=== PATIENT | female | born 1985 | race Caucasian/White ===

== ENCOUNTER 2016-09-30 15:27 | Emergency (ER) | payer BC ==
[2016-09-30 16:25] VITALS: O2SAT 100
[2016-09-30] MEDS ORDERED: Sodium Chloride 0.9% 1,000 ML IV STA (17:40)
--- NOTE | 2016-09-30 17:47 | ED PDOC ---
Syncope/Near Syncope/Dizziness Time Seen by Provider: 09/30/16 17:29 Chief Complaint (Nursing): Syncope Chief Complaint (Provider): fainted History Per: Patient, Family History/Exam Limitations: no limitations Onset/Duration Of Symptoms: Sudden Onset (at 1pm) Associated Symptoms Preceding Syncopal Episode: Lightheadedness Fall Associated With With Symptoms: Yes (hit head) Additional Complaint(s): Generalized weakness for 2 days Fever for 1 day, took one tablet of 325mg acetaminophen yesterday with no relief Associated body aches and shaking chills today. Decreased appetite. While in shower, syncopal episode. May have been out for "a couple minutes" but unwitnessed. No urinary incontinence. Denies cough, runny nose, sore throat, vomiting/diarrhea, rash, neck stiffness, photophobia, urinary symptoms. Recent trip to [place] 2 weeks ago. Reports using insect repellent and covering up to prevent insect bites. Denies any known insect bites. PMD Prompt MD Berrios Past Medical History Reviewed: Historical Data, Nursing Documentation, Vital Signs Vital Signs: Last Vital Signs Temp 102.3 F H 09/30/16 16:23 Pulse 115 H 09/30/16 16:23 Resp 16 09/30/16 16:23 BP 95/66 L 09/30/16 16:23 Pulse Ox 100 09/30/16 16:23 - Medical History PMH: No Chronic Diseases - Surgical History Surgical History: No Surg Hx - Family History Family History: States: No Known Family Hx - Social History Current smoker - smoking cessation education provided: No - Allergies Allergies/Adverse Reactions: Allergies Allergy/AdvReac Type Severity Reaction Status Date / Time No Known Allergies Allergy Verified 09/30/16 16:22 Review of Systems ROS Statement: Except As Marked, All Systems Reviewed And Found Negative Constitutional: Positive for: Fever, Chills, Weakness, Malaise. Negative for: Sweats ENT: Negative for: Nose Discharge, Nose Congestion, Throat Pain Cardiovascular: Positive for: Light Headedness. Negative for: Chest Pain Respiratory: Negative for: Cough, Sputum Gastrointestinal: Negative for: Vomiting, Abdominal Pain, Diarrhea Genitourinary Female: Negative for: Dysuria, Frequency, Vaginal Discharge, Vaginal Bleeding Musculoskeletal: Positive for: Neck Pain, Back Pain, Leg Pain, Other (diffuse myalgias and joint pains) Skin: Negative for: Rash, Lesions, Jaundice Neurological: Positive for: Headache. Negative for: Weakness, Numbness, Incoordination Physical Exam - Reviewed Nursing Documentation Reviewed: Yes Vital Signs Reviewed: Yes - Physical Exam Appears: Positive for: Non-toxic, In Acute Distress (fever shaking ) Head Exam: Positive for: ATRAUMATIC, NORMOCEPHALIC Skin: Positive for: Warm, Dry. Negative for: Rash Eye Exam: Positive for: EOMI, PERRL ENT: Positive for: Other (dry mucus membranes). Negative for: Pharyngeal Erythema, Tonsillar Exudate, Tonsillar Swelling Neck: Positive for: Painless ROM, Supple (NO meningismus) Cardiovascular/Chest: Positive for: Regular Rate, Rhythm, Chest Non Tender. Negative for: Murmur Respiratory: Positive for: Normal Breath Sounds. Negative for: Rales, Rhonchi, Wheezing, Respiratory Distress Gastrointestinal/Abdominal: Positive for: Soft. Negative for: Tenderness, Distended, Guarding Back: Positive for: Normal Inspection. Negative for: Vertebral Tenderness, Muscle Spasm Extremity: Positive for: Normal ROM. Negative for: Pedal Edema, Deformity Lymphatic: Negative for: Adenopathy Neurologic/Psych: Positive for: Alert. Negative for: Motor/Sensory Deficits - Laboratory Results Result Diagrams: 09/30/16 18:30 09/30/16 18:30 Interpretation Of Abn Labs: No emergently clinically significant lab abnormalities. - ECG ECG Rhythm: Positive for: Sinus Tachycardia O2 Sat by Pulse Oximetry: 100 Pulse Ox Interpretation: Normal - Progress Re-evaluation Time: 20:00 Condition: Re-examined, Improved (pt feels better s/p IVF, tylenol, toradol. Eager to go home.) Disposition - Clinical Impression Clinical Impression: Syncope, Fever, Myalgia Counseled Patient/Family Regarding: Studies Performed, Diagnosis, Need For Followup, Rx Given - Disposition Referrals: PROMPT MD [Provider Group] (FOLLOW UP TOMORROW WITH PROMPT MD FOR REEVALUATION) Disposition: Routine/Home Disposition Time: 20:00 Condition: IMPROVED Additional Instructions: DRINK PLENTY OF HYDRATING FLUIDS AND TRY TO STAY WELL NOURISHED TAKE FULL DOSE TYLENOL AND/OR MOTRIN FOR FEVER OR BODYACHES. Instructions: Viral Syndrome (ED), Syncope (ED)
[2016-09-30 18:20] LABS: RBC URINE 111 /hpf (0-3); URINE BACTERIA RARE (<OCC); URINE BILIRUBIN NEGATIVE (NEGATIVE); URINE BLOOD MODERATE (NEGATIVE); URINE COLOR YELLOW (YELLOW); URINE GLUCOSE (UA) NEG (Normal); URINE KETONE TRACE mg/dL (NEGATIVE); URINE LEUKOCYTE ESTERASE TRACE Leu/uL (Negative); URINE PROTEIN 30 mg/dL (NEGATIVE); URINE UROBILINOGEN 0.2-1.0 mg/dL (0.2-1.0); WBC URINE 3 /hpf (0-5)
[2016-09-30 18:56] LABS: BASO % 0.2 % (0.0-2.0); HEMATOCRIT 35.6 % (34.0-47.0); LYMPH # 0.9 K/uL (1.0-4.3); LYMPH % 10.4 % (20.0-40.0); MEAN CELL VOLUME 84.5 fl (81.0-99.0); MEAN CORPUSCULAR HEMOGLOBIN 27.5 pg (27.0-31.0); MEAN CORPUSCULAR HGB CONC 32.5 g/dL (33.0-37.0); MEAN PLATELET VOLUME 10.2 fl (7.2-11.7); MONO # 0.5 K/uL (0.0-0.8); MONO % 6.1 % (0.0-10.0); NEUT # 6.9 K/uL (1.8-7.0); NEUT % 83.3 % (50.0-75.0); RED CELL DISTRIBUTION WIDTH 12.6 % (11.5-14.5); WHITE BLOOD COUNT 8.3 K/uL (4.8-10.8)
[2016-09-30 19:00] LABS: ALB/GLOB RATIO 1.4 (1.0-2.1); ALKALINE PHOSPHATASE 58 U/L (38-126); ALT/SGPT 29 U/L (9-52); AST/SGOT 19 U/L (14-36); BILIRUBIN,TOTAL 0.5 mg/dl (0.2-1.3); BLOOD UREA NITROGEN 8 mg/dl (7-17); CALCIUM 8.7 mg/dL (8.4-10.2); CARBON DIOXIDE 21 mmol/L (22-30); CHLORIDE 107 mmol/L (98-107); GFR AFRICAN-AMERICAN > 60; GLUCOSE,RANDOM 92 mg/dL (65-105); MAGNESIUM 1.8 MG/DL (1.6-2.3); PHOSPHOROUS 2.5 mg/dl (2.5-4.5); POTASSIUM 3.7 MMOL/L (3.6-5.0); SODIUM 138 mmol/l (132-148); TOTAL PROTEIN 7.4 G/DL (6.3-8.2)
[2016-09-30 19:18] LABS: VENOUS BLOOD GAS BASE EXCESS -1.1 mmol/L (0.0-2.0); VENOUS BLOOD GAS PCO2 33 mmHg (40-60); VENOUS BLOOD PH 7.44 (7.32-7.43)
[2016-09-30 21:03] VITALS: BP 102/64; PULSE 103; RESP 18; TEMP 98.6
--- NOTE | 2016-10-01 13:01 | CARD ---
APPROVED REPORT EKG Measurement Heart [id number] <Conclusion> Sinus tachycardia Otherwise normal ECG
== END 2016-09-30 21:15 | disposition home or self-care (01) ==
LOC: H.ER 15:27
DX: R55 Syncope and collapse (principal); B34.9 Viral infection, unspecified
CPT/HCPCS: 80053; 81003; 81025; 82803; 83735; 84100; 85025; 86308; 87040; 87070; 87086; 87430; 87804; 93005; 96374; 99285; J1885; J7040